=== PATIENT | male | born 1935 | race Caucasian/White ===

== ENCOUNTER 2016-10-31 09:11 | Day surgery (SDC) | payer MEDICARE, OTHER ==
[2016-10-31] VITALS (13 sets, daily range): BP systolic 125–145; BP diastolic 57–88; PULSE 38–69; RESP 13–22; O2SAT 92–98
[~2016-10-31] VITALS: Ht 177.8 cm; Wt 81.9 kg
[~2016-10-31 09:11] MED LIST: ASPI-973 PO; CeFAZolin Inj 2 GM in IV Premix 1 EACH IV ONE; LORA1TAB PO; MULT-1018 PO; RES15 PO; SILD100T PO; TAMS0.4C98 PO
[2016-10-31] MEDS ORDERED: EPHEDrine/NS 5 mg/mL 5 mL Syringe ONE (09:12)
[2016-10-31] MEDS ORDERED: Ondansetron 2 mg/mL 2 mL Inj ONE (09:12)
[2016-10-31] MEDS ORDERED: Lidocaine PF 1% 30 mL Inj ONE (09:12)
[2016-10-31] MEDS ORDERED: Propofol 10,000 mCg/mL 20 mL Inj ONE (09:12)
[2016-10-31] MEDS ORDERED: fentaNYL-PF 50 mCg/mL 2 mL Inj ONE (09:12)
[2016-10-31] MEDS: Lactated Ringer's 1,000 ML IV SCH ×2 (09:45→11:51)
[2016-10-31] MEDS ORDERED: Lactated Ringer's 1,000 ML IV SCH (11:39)
[2016-10-31] MEDS ORDERED: Lactated Ringer's 500 ML IV PRN (11:39)
--- NOTE | 2016-10-31 11:39 | PCM.HPANE ---
Patient Data Date of Service: Oct 31, 2016 Surgeon Admitting Provider: Attending Provider:Talisha Rocha MD Primary Care Physician:Sergey Abbott DO Other Provider:Anneliese Ibrahim Anesthesia Reason for Visit Microscopic Hematuria Ht/WT & BMI Height (Feet): 5 Height (Inches): 10 Weight (Kilograms): 81.9 Body Mass Index 25.00 Allergies Coded Allergies: Penicillins (Verified Allergy, Unknown, rash, 10/29/16) Past Anesthesia History Anesthesia History: Denies:: Abnormal Airway, Anesthesia Reactions, Difficult Intubation, Fam Anesthesia Reaction Diabetes History Hx Diabetes?: No MRSA MRSA: No Medications Blood Thinner: Aspirin Hypertension Medication: No Home Meds Incl Beta [place]: No Reported Medications Sildenafil Citrate (Viagra)100 Mg [id number] Mg PO UD PRN erectile dysfunction Ref 0 10/29/16 Temazepam 15 Mg [id number] Mg PO HS PRN For Insomnia 30 Days Ref 0 10/29/16 Tamsulosin (Flomax)0.4 Mg Capsule0.4 Mg PO DAILY Ref 0 10/29/16 Multivitamin (Multi Vitamin Daily)1 Each Tablet1 Each PO DAILY 30 Days Ref 0 10/29/16 Lorazepam 1 Mg Tablet1 Mg PO TID PRN For Anxiety Ref 0 10/29/16 Aspirin 81 Mg [id number] Mg PO DAILY Ref 0 10/29/16 History HEENT History: Positive for:: Cataracts (bilateral surgery) Hearing Problem Denies:: Abnormal Airway Difficult Intubation Dysphagia Sinus Problem TMJ Other HEENT Pertinent History: wears 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 Hx of Heart Problems?: No Cardiovascular History: Denies:: AICD Abdominal Aortic Aneurism Atrial Fibrillation Chest Pain Edema Heart Murmur Hypertension Irregular Heartbeat Pacemaker Peripheral Vascular Hx of Respiratory Problem?: No Respiratory History: Denies:: Asthma COPD Emphysema Oxygen Administration Pneumonia Tuberculosis Use of C-PAP Machine Use of Inhalers / NEBS Hx Neurologic Problems?: Yes Neurological History: Denies:: CVA Multiple Sclerosis Parkinson's Disease Seizures TIA Other Neurological Pertinent: spinal cerebellar ataxia-uses walker, or cane for ambulation Hx of GI Problems?: No Gastrointestinal History: Denies:: Cirrhosis Gall Bladder Disease Gastroesphageal Reflux Gastrointestinal Bleeding Heartburn Hepatitis Hiatal Hernia Liver Disease Rectal Bleeding Hx of Problems?: Yes Genitourinary History: Denies:: Kidney Stones Urinary Tract Infection Other Pertinent History: hematuria current admission problem Male Hx: Denies:: Prostate Problems Skin History: Denies:: History Skin Disorders? Pressure Ulcers Hx Musculoskeletal Problems?: No Musculoskeletal History: Positive for:: Joint Replacement (right hip ) Denies:: Back Injury Fibromyalgia Musculoskeletal Trauma Myasthenia Gravis Osteoarthritis Hx of Psycho/Social Problems?: No Psycho Social History: Denies:: Anxiety Hx Depression Hx Surgeries?: Yes (right hip, hernia repair) Hx Any Other Health Problems?: Yes Other History: Positive for:: Cancer (skin cancer "pre melanoma" upper back) Denies:: Thyroid Disease History Blood Transfusions: Positive for:: Accept Blood Products? Denies:: Blood Transfusions Hx Diabetes: No Hx Alcohol Use: NoHx Substance Use: NoHave You Smoked inLast 12 mo: No Stop/Bang Treated for Sleep Apnea?: No Do You Have a CPAP Machine?: No S-Snoring: Do You Snore Loudly: No T-Tired: feel tired, fatigued: No O-Obsered: Observed not breath: Yes P-Blood Pressure: treated: No B- Body Mass Index > 35 kg/m2: No A- Age over 50: Yes N- Neck Large Circumference: No G- Gender Male: Yes JANIE Total Score: 3 JANIE Risk Assessment: High Risk, =/>3 Yes JANIE Category 4 OutPt Procedure: Yes Risk Assessment Category Category 1A: Patient has history of documented sleep apnea, and HAS NOT received any narcotic, sedative or anesthesia administration during this stay. Category 1B: Patient has history of documented sleep apnea, and HAS received any narcotic , sedative or anesthesia administration during this stay Category 2: Patient has SUSPECTED Obstructive Sleep Apnea, and HAS received any narcotic , sedative or anesthesia administration during this stay. Category 3: Patient has SUSPECTED Obstructive Sleep Apnea and HAS NOT received narcotic, sedative or anesthesia administration during this stay. Category 4: Outpatient in Procedural Areas with known sleep apnea or who screen positive for High Risk via the STOP/BANG questionnaire. Exam Exam Vital Signs Vital Signs Date Time Temp Pulse Resp B/P Pulse Ox O2 Delivery O2 Flow Rate FiO2 10/31/16 09:45 36.5 69 16 137/81 94 Room Air General Appearance: Alert, Oriented X3, Cooperative HEENT/AIRWAY: MP 2, Neck Movement (Full), Mouth Opening (Wide) Lungs: Clear to Auscultation, Normal Air Movement Heart: Regular Rate/Rhythm, Normal S1, Normal S2 Meds/Labs/Diagnostics Admission Meds Current Medications Lactated Ringer's (Lr) 1,000 ml @ 120 mls/hr [id number] IV Last administered on t 09:45; Start 10/31/16 at 05:00; Stop 10/31/16 at 13:19 Plan Impression Patient chart reviewed, patient interviewed and anesthestic plan with risks, benefits, and alternatives discussed, and informed consent obtained. NPO Status: 10/30 ASA Physical Status: ASA2 Mod Systemic Disease Anesthetic Plan: GA Bene/Risks/Altern/Consents: Yes HP Complete Prior to Induction: Yes Ian Harden MD Oct 31, 2016 10:08
[2016-10-31] MEDS ORDERED: Labetalol 5 mg/mL 4 mL Inj IV PRN (11:40)
[2016-10-31] MEDS ORDERED: fentaNYL-PF 50 mCg/mL 2 mL Inj IVPUSH PRN (11:40)
[2016-10-31] MEDS ORDERED: Phenylephrine 10,000 mCg/mL Inj IVPUSH PRN (11:40)
[2016-10-31] MEDS ORDERED: Atropine 0.4 mg/mL Inj IVPUSH PRN (11:40)
[2016-10-31] MEDS ORDERED: HYDROmorphone 1 mg/mL Inj IVPUSH PRN (11:40)
[2016-10-31] MEDS ORDERED: MetoCLOpramide 5 mg/mL 2 mL Inj IVPUSH PRN (11:40)
[2016-10-31] MEDS ORDERED: Dexamethasone 4 mg/mL Inj IVPUSH PRN (11:40)
[2016-10-31] MEDS ORDERED: Ondansetron 2 mg/mL 2 mL Inj IVPUSH PRN (11:40)
[2016-10-31] MEDS ORDERED: hydrALAZINE 20 mg/mL Inj IVPUSH PRN (11:40)
[2016-10-31] MEDS ORDERED: EPHEDrine Sulfate 50 mg/mL Inj IVPUSH PRN (11:40)
[2016-10-31] MEDS ORDERED: Belladonna Alk-Opium 60 mg Rectal Suppository RECTAL ONE (13:06)
[2016-10-31] MEDS ORDERED: HYDROcodone-APAP 5-325 mg Tablet PO PRN (13:25)
[2016-10-31] MEDS ORDERED: Ondansetron 8 mg ODT Tablet PO PRN (13:25)
--- NOTE | 2016-10-31 13:31 | PCM.ANEP1 ---
Post Anesthesia Phase 1 PACU Phase 1 Assessment Date of Service: Oct 31, 2016 Vital Signs Vital Signs Date Time Temp Pulse Resp B/P Pulse Ox O2 Delivery O2 Flow Rate FiO2 10/31/16 09:45 36.5 69 16 137/81 94 Room Air Anesthetic Administered: GA Level of Alertness: Sleepy, easy to arouse HESS's with Equal Strength: Yes Pain: No Nausea or Vomiting: No Oxygen Delivery: Simple Mask Lungs: Normal Air Movement Ian Harden MD Oct 31, 2016 13:31
--- NOTE | 2016-10-31 13:48 | PCM.ANEP2 ---
Post Anesthesia Evaluation ASA/CMS Post Anesthesia Date of Service: Oct 31, 2016 VS in Patient's Normal Range?: Yes Resp Stable; Airway Patent?: Yes CV Function & Hydration Stable: Yes Mental Status Recovered?: Yes Pain control Satisfactory?: Yes N/V Control Satisfactory?: Yes Ian Harden MD Oct 31, 2016 13:48
[2016-10-31] MEDS ORDERED: Phenazopyridine 97.5 mg Tablet ONE (14:47)
[2016-10-31] MEDS ORDERED: Phenazopyridine 97.5 mg Tablet PO ONE (15:25)
--- NOTE | 2016-10-31 16:22 | DRSVH ---
PROCEDURE: X-RAY RETROGRADE UROGRAPHY INDICATIONS: LEFT CYSTO WITH STENT PLACEMENT TECHNIQUE: 2 intra-operative images acquired by the Urology service. COMPARISON: [facility], CT, IVP (ABD & PEL WWO CONTRAST), 09/30/2016, 10:01. FINDINGS: 2 submitted images demonstrates placement of left ureteral stent. IMPRESSION: Placement of left ureteral stent. Dictated by: Haider FRAZIER Interpreted: Cosme Douglas MD on 10/31/2016 at 16:20 Transcribed by: LAURI on 10/31/2016 at 16:21 Approved by: Cosme Douglas M.D. on 11/02/2016 at 16:02
--- NOTE | 2016-11-02 | OP ---
[address] [address] OPERATIVE REPORT PATIENT: ROBERT LOZADA : 1935 MR#: [id number] ADMIT: 10/31/2016 JOB ID: [id number] DATE OF SURGERY: 10/31/2016 SURGEON: Talisha Rocha MD. PROCEDURE NAME: 1 Left-sided ureteroscopy with 2 left-sided renal pelvis biopsy, left-sided renal pelvis washings, and 3 left-sided double-J stent. ANESTHESIA: General. PREOPERATIVE DIAGNOSIS(ES): 1. Gross hematuria. 2. Left-sided renal pelvis defect on imaging study suspicious for renal pelvic tumor. POSTOPERATIVE DIAGNOSIS(ES): 1. Gross hematuria. 2. Left-sided renal pelvis defect on imaging study suspicious for renal pelvic tumor. INDICATIONS: Patient is an 81-year-old gentleman with a workup for gross hematuria revealing age-appropriate urinary bladder; however, CT urogram revealing a filling defect highly suspicious for a soft tissue tumor in the left renal pelvis. He was set up for diagnostic ureteroscopy, biopsy if indicated, and ureteral washings to assess the nature of this filling defect. Risks and benefits of the procedure were discussed with the patient as this is potentially automobile rental representative of a renal pelvic malignancy. Diagnosis would be necessary prior to recommendation of appropriate therapy. PROCEDURE IN DETAIL: After appropriate informed consent was obtained, patient was brought to the operating room. SCDs were placed. Adequate general anesthesia was induced. He received IV antibiotics prior to onset of the procedure. He was carefully placed in the dorsal lithotomy position. All pressure points carefully padded. Cleaned, prepped, and draped in usual sterile fashion. Rigid scope was introduced in the patient's bladder. He was noted to have a friable large prostate consistent with age over 80 years old. Left ureteral orifice was visualized and noted to be in orthotopic position. It was also rather diminutive in size. We needed to dilate with a 14-Libyan diameter balloon to get into the ureteral orifice and then found ultimately that we needed to dilate partially the way up the ureter in order to get the flexible ureteroscope up. We used a 14-Libyan outer diameter access sheath that was short hoping to advance the scope itself over wire up into the renal pelvis; however, we actually did have to dilate two more small segments above the level of the access sheath to get the scope up. Once we had done this, we obtained some ureteral washings, renal pelvic washings, cell sent for cytology. Inspection of the renal pelvis did reveal a visible soft tissue mass, some of which was reddish in appearance. Did not exactly appear as clot and was felt to be tumor. There were also some low papillary changes, which were seen quite obviously to be papillary changes in several locations in the renal pelvis in the expected location. We used a small cup biopsy forceps to get some tissue from the larger reddish mass which may or may have been clot versus tumor. Attempts to grasp areas of renal pelvis papillary changes were possibly unsuccessful. It was difficult to see the tissue and with the patient's breathing making biopsy difficult. We took a few more washings from this area and then withdrew the scope. There had been a safety wire left in place throughout the course of the entire ureteroscopy and we then used a safety wire to backload a 6-Libyan x 24 cm double-J stent with the string intact up into good position with a curl in the renal pelvis and a curl in the patient's bladder. This was done secondary to the need for dilation and the expectation of some potential bleeding after biopsies. There was actually minimal bleeding. The stent itself was in good position with a curl in the renal pelvis as seen on the fluoroscopy and curl in the renal pelvis seen visually. Patient's bladder and some clot was irrigated out with the cystoscope and string was left long outside of the patient's body in anticipation of removal of the stent in one week. He was given a B and O for postop comfort, awakened, and taken in stable condition to the postanesthesia care unit. ABILIO
--- NOTE | 2016-11-07 10:08 | PATH ---
SURGICAL PATHOLOGY Attending Physician:Talisha Rocha MD CASE STATUS: Signed Out PATIENT NAME: ROBERT LOZADA PID: [id number] : 1935 DATE COLLECTED:10/31/2016 00:00 SPECIMEN: 1: Left Renal Pelvis Washing 2: Left Renal Pelvis Washing CLINICAL HISTORY: A) Left Renal Pelvis Washing B) Left Renal Pelvis Washing ICD-10 code not given FINAL DIAGNOSIS: See diagnosis. NOTE: LEFT RENAL PELVIS WASHING CYTOLOGY SPECIMEN (PARTS A AND B), INCLUDES CELL BLOCK AND THINPREP, EACH SPECIMEN: NEGATIVE FOR MALIGNANCY. CELLS PRESENT INCLUDE BENIGN-APPEARING UROTHELIAL CELLS WELL INFLAMMATORY CELLS. ICD10 CODE N28.9 GROSS DESCRIPTION: A)Received fresh on 11/03/2016 is approximately 20 cc of cloudy pink fluid. Prepared are one cell block and one ThinPrep slide. B)Received fresh on 11/03/2016 is approximately 20 cc of clear pink fluid. Prepared are one cell block and one ThinPrep slide. Vo ICD-9 CODES: CPT CODES: 1: 15195, 84076 2: 30514, 97963 Electronically Signed Out Farhat Bell MD [facility] [address], [place] [address] Technical component performed at [facility], [facility] [address], [place], [address]
[2017-01-01] MEDS ORDERED: HYDR-4003 PO (14:16)
== END 2016-10-31 23:59 | disposition home or self-care (01) ==
LOC: SAS 09:11
PROVIDERS: ATTEND Urology
DX: R31.29 Other microscopic hematuria (principal); N28.89 Other specified disorders of kidney and ureter; R35.1 Nocturia; N40.1 Benign prostatic hyperplasia with lower urinary tract symptoms; G11.9 Hereditary ataxia, unspecified; E55.9 Vitamin D deficiency, unspecified; Z79.82 Long term (current) use of aspirin
CPT/HCPCS: 52332; 52354; 74420; C2617; J0690; J2405; J3010; J7120; Q9967

== ENCOUNTER 2016-12-08 06:23 | Day surgery (SDC) | payer MEDICARE, OTHER ==
[2016-12-08] VITALS (7 sets, daily range): BP systolic 135–157; BP diastolic 77–88; PULSE 57–76; RESP 10–20; O2SAT 95–98
[~2016-12-08] VITALS: Ht 170.2 cm; Wt 79.3 kg
[~2016-12-08 06:23] MED LIST changes: -CeFAZolin Inj 2 GM in IV Premix 1 EACH IV ONE; +Lactated Ringer's 1,000 ML IV ONE; +Levofloxacin 500 mg/100 mL D5W IV ONE
[2016-12-08] MEDS ORDERED: Propofol 10,000 mCg/mL 20 mL Inj ONE (06:24)
[2016-12-08] MEDS ORDERED: Ondansetron 2 mg/mL 2 mL Inj ONE (06:24)
[2016-12-08] MEDS ORDERED: fentaNYL-PF 50 mCg/mL 2 mL Inj ONE (06:24)
--- NOTE | 2016-12-08 06:47 | PCM.HPANE ---
Patient Data Surgeon Admitting Provider: Attending Provider:Fatemeh Horton MD Primary Care Physician:Sergey Abbott DO Other Provider:Jolynn Ibrahimingham Anesthesia Reason for Visit Abnormal Ct Scan Ht/WT & BMI Height (Feet): 5 Height (Inches): 7 Weight (Kilograms): 79.29 Body Mass Index 27.00 Allergies Coded Allergies: Penicillins (Verified Allergy, Unknown, rash, 10/29/16) Past Anesthesia History Anesthesia History: Denies:: Abnormal Airway, Anesthesia Reactions, Difficult Intubation, Fam Anesthesia Reaction Diabetes History Hx Diabetes?: No MRSA MRSA: No Medications Blood Thinner: Aspirin Hypertension Medication: No Home Meds Incl Beta [place]: No Reported Medications Sildenafil Citrate (Viagra)100 Mg [id number] Mg PO UD PRN erectile dysfunction Ref 0 10/29/16 Temazepam 15 Mg Ohsoubz17 Mg PO HS PRN For Insomnia 30 Days Ref 0 10/29/16 Tamsulosin (Flomax)0.4 Mg Capsule0.4 Mg PO DAILY Ref 0 10/29/16 Multivitamin (Multi Vitamin Daily)1 Each Tablet1 Each PO DAILY 30 Days Ref 0 10/29/16 Lorazepam 1 Mg Tablet1 Mg PO TID PRN For Anxiety Ref 0 10/29/16 Aspirin 81 Mg Yuzysc83 Mg PO DAILY Ref 0 10/29/16 History HEENT History: Positive for:: Cataracts (bilateral surgery) Hearing Problem Denies:: Abnormal Airway Difficult Intubation Dysphagia Sinus Problem TMJ Other HEENT Pertinent History: wears 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 Hx of Heart Problems?: No Cardiovascular History: Denies:: AICD Abdominal Aortic Aneurism Atrial Fibrillation Cardiac Surgery Chest Pain Edema Heart Murmur Hypertension Irregular Heartbeat Pacemaker Peripheral Vascular Hx of Respiratory Problem?: No Respiratory History: Denies:: Asthma COPD Emphysema Oxygen Administration Pneumonia Tuberculosis Use of C-PAP Machine Use of Inhalers / NEBS Hx Neurologic Problems?: Yes Neurological History: Denies:: CVA Multiple Sclerosis Parkinson's Disease Seizures Other Neurological Pertinent: 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 Pressure Ulcers Hx Musculoskeletal Problems?: Yes Musculoskeletal History: Positive for:: Joint Replacement (right hip) Osteoarthritis Denies:: Back Injury Fibromyalgia Musculoskeletal Trauma Hx of Psycho/Social Problems?: No Psycho Social History: Denies:: Anxiety Hx Depression Hx Surgeries?: Yes (right total hip, hernia, cysto) Hx Any Other Health Problems?: Yes Other History: Denies:: Cancer Thyroid Disease History Blood Transfusions: Denies:: Blood Transfusions Hx Diabetes: No Hx Alcohol Use: NoHx Substance Use: NoHave You Smoked inLast 12 mo: No Stop/Bang S-Snoring: Do You Snore Loudly: No T-Tired: feel tired, fatigued: No O-Obsered: Observed not breath: Yes P-Blood Pressure: treated: No B- Body Mass Index > 35 kg/m2: No A- Age over 50: Yes N- Neck Large Circumference: No G- Gender Male: Yes JANIE Total Score: 3 Risk Assessment Category Category 1A: Patient has history of documented sleep apnea, and HAS NOT received any narcotic, sedative or anesthesia administration during this stay. Category 1B: Patient has history of documented sleep apnea, and HAS received any narcotic , sedative or anesthesia administration during this stay Category 2: Patient has SUSPECTED Obstructive Sleep Apnea, and HAS received any narcotic , sedative or anesthesia administration during this stay. Category 3: Patient has SUSPECTED Obstructive Sleep Apnea and HAS NOT received narcotic, sedative or anesthesia administration during this stay. Category 4: Outpatient in Procedural Areas with known sleep apnea or who screen positive for High Risk via the STOP/BANG questionnaire. Exam Exam General Appearance: Alert, Oriented X3, Cooperative HEENT/AIRWAY: MP 2, Neck Movement (FROM), Mouth Opening (Moderate) Lungs: Clear to Auscultation Heart: Exam Unremarkable Plan Impression Patient chart reviewed, patient interviewed and anesthestic plan with risks, benefits, and alternatives discussed, and informed consent obtained. NPO Status: 2/9 ASA Physical Status: ASA2 Mod Systemic Disease Anesthetic Plan: GA Bene/Risks/Altern/Consents: Yes HP Complete Prior to Induction: Yes Gsaton Green MD Dec 08, 2016 06:47
[2016-12-08] MEDS ORDERED: Lactated Ringer's 1,000 ML IV ONE (07:09)
[2016-12-08] MEDS ORDERED: Lactated Ringer's 500 ML IV PRN (08:24)
[2016-12-08] MEDS ORDERED: Lactated Ringer's 1,000 ML IV SCH (08:24)
[2016-12-08] MEDS ORDERED: Labetalol 5 mg/mL 4 mL Inj IV PRN (08:25)
[2016-12-08] MEDS ORDERED: Atropine 0.4 mg/mL Inj IVPUSH PRN (08:25)
[2016-12-08] MEDS ORDERED: fentaNYL-PF 50 mCg/mL 2 mL Inj IVPUSH PRN (08:25)
[2016-12-08] MEDS ORDERED: Ondansetron 2 mg/mL 2 mL Inj IVPUSH PRN (08:25)
[2016-12-08] MEDS ORDERED: hydrALAZINE 20 mg/mL Inj IVPUSH PRN (08:25)
[2016-12-08] MEDS ORDERED: Phenylephrine 10,000 mCg/mL Inj IVPUSH PRN (08:25)
[2016-12-08] MEDS ORDERED: Dexamethasone 4 mg/mL Inj IVPUSH PRN (08:25)
[2016-12-08] MEDS ORDERED: HYDROmorphone 1 mg/mL Inj IVPUSH PRN (08:25)
[2016-12-08] MEDS ORDERED: EPHEDrine Sulfate 50 mg/mL Inj IVPUSH PRN (08:25)
[2016-12-08] MEDS ORDERED: Iopamidol-300 50 mL Inj IV ONE (08:59)
[2016-12-08] MEDS ORDERED: HYDROcodone-APAP 5-325 mg Tablet PO PRN (10:35)
--- NOTE | 2016-12-08 10:39 | PCM.ANEP1 ---
Post Anesthesia Phase 1 PACU Phase 1 Assessment Vital Signs Vital Signs Date Time Temp Pulse Resp B/P Pulse Ox O2 Delivery O2 Flow Rate FiO2 12/08/16 10:30 65 11 135/82 98 Simple Mask 10 12/08/16 10:22 36.7 65 10 141/80 97 Simple Mask 10 12/08/16 07:10 36.4 76 20 157/81 97 Room Air Anesthetic Administered: GA Level of Alertness: Sleeping, hard to arouse HESS's with Equal Strength: Yes Pain: No Nausea or Vomiting: No Airway Device: Oralpharangeal Airway Oxygen Delivery: Simple Mask Lungs: Normal Air Movement Gaston Green MD Dec 08, 2016 10:39
--- NOTE | 2016-12-08 12:40 | PCM.ANEP2 ---
Post Anesthesia Evaluation ASA/CMS Post Anesthesia VS in Patient's Normal Range?: Yes Resp Stable; Airway Patent?: Yes CV Function & Hydration Stable: Yes Mental Status Recovered?: Yes Pain control Satisfactory?: Yes N/V Control Satisfactory?: Yes Gaston Green MD Dec 08, 2016 12:40
--- NOTE | 2016-12-08 22:02 | OP ---
[address] [address] OPERATIVE REPORT PATIENT: ROBERT LOZADA : 1935 MR#: [id number] ADMIT: 12/08/2016 JOB ID: [id number] DATE OF SURGERY: 12/08/2016 PREOPERATIVE DIAGNOSIS(ES): Left lower pole filling defect. POSTOPERATIVE DIAGNOSIS(ES): Left lower pole collecting system tumors. PROCEDURE: 1. Cystoscopy with left retrograde pyelogram. 2. Left ureteroscopy. 3. Left laser of tumor. 4. Left tumor basketing. 5. Left ureteral stent placement. SURGEON: Fatemeh Horton MD. CASTING HOUSE WORKER: None. FINDINGS: 1. J hooked left distal ureter. 2. 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 Within the an inferior pole calyx, there was papillary tumor present diffusely within the calyx and at the lowest pole calyx there was a nodular friable tumor with calcifications encrusting the surface of this tumor. ANESTHESIA: General. ESTIMATED BLOOD LOSS: Less than 5 mL. DRAINS: A 6 x 26 left double-J ureteral stent. SPECIMENS: Left lower pole collecting system tumors. COMPLICATIONS: None. CONDITION: Stable. INDICATIONS FOR PROCEDURE: The patient is an 81-year-old gentleman with left lower pole tumors. He had previously undergone attempted biopsy of these lesions with Dr. Rocha. The specimens were inadequate for pathologic diagnosis. He now returns to obtain further specimens for further evaluation. DESCRIPTION OF PROCEDURE: After informed consent was obtained, the patient was taken to the operating room. A time-out was performed identifying correct patient, surgical site, and procedure. General anesthesia was smoothly induced. He was given intravenous antibiotics just prior to the start of the procedure. He was placed in the lithotomy position and all pressure points were identified and appropriately padded. His genitals were then prepped and draped in usual sterile fashion. A 22-Iraqi rigid cystoscope was applied to the patient's urethra and advanced into the bladder. Bladder was drained. The bladder appeared moderately trabeculated. The left ureteral orifice was identified in orthotopic position. It was cannulated with a 5-Iraqi open-ended Pollack catheter. Retrograde pyelogram was performed. There was J hooking just proximal to the ureterovesical junction. The retrograde pyelogram appeared otherwise normal. It was attempted to place a Sensor tip and then a glide wire through the Pollack and then without the Pollack up the ureter though this J hooking prevented the wire from migrating any further than just the distal ureter. A semi-rigid ureteroscope was then used to circumvent the J hooking and two Sensor tip wires were then advanced into the renal pelvis as seen under fluoroscopy. A 12/14 access sheath, 28 cm long was used over one of the existing Sensor tip wires and advanced to the mid ureter. Flexible ureteroscopy then commenced. The ureter on survey with the ureteroscope was normal-appearing, perhaps somewhat very mildly dilated. Every calyx was examined. Retrograde pyelogram was repeatedly performed. In the lower pole calyx, the one more lateral in the lower pole, there was papillary tumor there, and the lowest pole calyx and more medial there was a nodular tumor surrounded by papillary tumors. This nodular tumor was encrusted with calcifications. It was attempted to use ureteroscopic biopsy forceps, both cold cup and an alligator, to collect samples though several and innumerable attempts yielded only the tiniest of fragments and it was uncertain if this would be adequate for pathologic diagnosis. Ultimately, a 273 micron laser FiberWire was used to break up some of the papillary tumors as well as the nodular tumors to create free-floating specimen. A ZeroTip basket was then used to basket some of these pieces of tissue and in review of these on the back table, these appeared to be more than adequate sampling for pathologic review. Next, the ureteroscope was then brought down to the level of the access sheath. Both were brought down in tandem. The ureter was entirely otherwise normal. The remaining Sensor tip wire was then backloaded into the cystoscope and a 6 x 26 double-J ureteral stent was loaded over the wire and advanced to the renal pelvis as seen under fluoroscopy. The wire then removed, leaving a nice coil in the patient's bladder seen under direct vision. The patient's bladder was then drained. The patient was then reversed from general anesthesia and taken to PACU in good and stable condition. ABILIO
--- NOTE | 2016-12-15 14:41 | PATH ---
SURGICAL PATHOLOGY Attending Physician:Fatemeh Horton, CASE STATUS: Signed Out PATIENT NAME: ROBERT LOZADA PID: [id number] : 1935 DATE COLLECTED:12/08/2016 20:47 SPECIMEN: Kidney, Non-transplant biopsy CLINICAL HISTORY: ABNORMAL CT SCAN 1). LEFT LOWER POLL COLLECTING SYSTEM LESION FINAL DIAGNOSIS: 1.LEFT LOWER POLL COLLECTING SYSTEM LESION, BIOPSY: HIGH-GRADE UROTHELIAL CARCINOMA. TUMOR DOES NOT APPEAR TO INFILTRATE THE SUBMUCOSA (PLEASE SEE COMMENT). ICD10 code C65.1 NOTE: The specimen consists of tumor and separate fragments of uninvolved submucosal fibrous tissue. No areas of invasion are identified. GROSS DESCRIPTION: The specimen is received in one formalin filled container labeled with the patient's name, sublabeled " LEFT LOWER POLL COLLECTING SYSTEM LESION" and consists of are two 0.3-0.4 CM light childress solis portions of tissue and small amount of friable material. Totally submitted in one cassette. 12/08/2016 [facility] MICRO DESCRIPTION: Sections reveal solid nests of malignant epithelial cells arrayed in a haphazard pattern. Present are fragments of fibrous submucosa that are uninvolved by tumor. Sections, along with appropriate controls, are incubated with the following antibodies: Pankeratin (FIONA):Positive CK7:PositiveGATA-3:Scattered moderate positivity Uroplakin:Negative PAX-8:Negative The findings are consistent with a urothelial carcinoma. This test was developed and its performance characteristics determined by [facility]. It has not been cleared or approved by the U. S. Food and Drug Administration. The FDA has determined that such clearance or approval is not necessary. This test is used for clinical purposes. It should not be regarded as investigational or for research. ICD-9 CODES: CPT CODES: 1: 66468, 09016, 39961, 16571, 05302 Electronically Signed Out Haris George MD [facility] Pathology [facility] [address], [place] [address] Technical component performed at [facility], [address], [place], [address]
[2017-01-01] MEDS ORDERED: HYDR-4003 PO (14:16)
== END 2016-12-08 23:59 | disposition home or self-care (01) ==
LOC: SAS 06:23
PROVIDERS: ATTEND Urology
DX: C65.1 Malignant neoplasm of right renal pelvis (principal); G11.9 Hereditary ataxia, unspecified; M19.90 Unspecified osteoarthritis, unspecified site; N40.1 Benign prostatic hyperplasia with lower urinary tract symptoms; R35.1 Nocturia; Z79.82 Long term (current) use of aspirin; Z96.641 Presence of right artificial hip joint
CPT/HCPCS: 52355; 74420; C2617; J2405; J3010; J7120; Q9967

== ENCOUNTER 2017-01-05 05:46 | Inpatient (IN) | payer MEDICARE, OTHER ==
[~2017-01-05] VITALS: Ht 175.3 cm; Wt 75.0 kg
[2017-01-05] VITALS (8 sets, daily range): BP systolic 140–151; BP diastolic 75–97; PULSE 51–94; RESP 15–20; O2SAT 94–96
[~2017-01-05 05:46] MED LIST changes: +HYDR-4003 PO; -Levofloxacin 500 mg/100 mL D5W IV ONE
[2017-01-05] MEDS ORDERED: CeFAZolin Inj 2 GM in IV Premix 1 EACH IV ONE (06:00)
[2017-01-05] MEDS: Levofloxacin 500 mg/100 mL D5W IV SCH ×4 (06:00→14:35)
[2017-01-05] MEDS ORDERED: SLEEP AID PO (06:01)
[2017-01-05] MEDS ORDERED: Lactated Ringer's 1,000 ML IV ONE ×4 (09:06→16:32)
[2017-01-05] MEDS ORDERED: Lactated Ringer's 500 ML IV PRN (09:36)
[2017-01-05] MEDS ORDERED: Lactated Ringer's 1,000 ML IV SCH (09:36)
--- NOTE | 2017-01-05 09:36 | PCM.HPANE ---
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 Ht/WT & BMI Height (Feet): 5 Height (Inches): 9 Weight (Kilograms): 73.3 Body Mass Index 23.00 Allergies Coded Allergies: Penicillins (Verified Allergy, Unknown, rash, 10/29/16) Past Anesthesia History Anesthesia History: Denies:: Abnormal Airway, Anesthesia Reactions, Difficult Intubation, Fam Anesthesia Reaction Diabetes History Hx Diabetes?: No MRSA MRSA: No Medications Blood Thinner: Aspirin Hypertension Medication: No Home Meds Incl Beta Cary: No Reported Medications [Sleep Aid] No Conflict Check1 Tablet PO PRN 01/05/17 Hydrocodone-Acetaminophen 5-325 mg 1 Each Tablet1 Tablet PO Q4H PRN For Pain Ref 0 01/01/17 Sildenafil Citrate (Viagra)100 Mg [id number] Mg PO UD PRN erectile dysfunction Ref 0 10/29/16 Temazepam 15 Mg Laufptx26 Mg PO HS PRN For Insomnia 30 Days Ref 0 10/29/16 Tamsulosin (Flomax)0.4 Mg Capsule0.4 Mg PO DAILY Ref 0 10/29/16 Multivitamin (Multi Vitamin Daily)1 Each Tablet1 Each PO DAILY 30 Days Ref 0 10/29/16 Lorazepam 1 Mg Tablet1 Mg PO TID PRN For Anxiety Ref 0 10/29/16 Aspirin 81 Mg Mtbvem50 Mg PO DAILY Ref 0 10/29/16 History History of ENT Problems?: Yes HEENT History: Positive for:: Cataracts (bilateral surgery) Hearing Problem Denies:: Abnormal Airway Difficult Intubation Dysphagia Sinus Problem TMJ Other HEENT Pertinent History: wears 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 Hx of Heart Problems?: No Cardiovascular History: Denies:: AICD Abdominal Aortic Aneurism Atrial Fibrillation Cardiac Surgery Chest Pain Edema Heart Murmur Hypertension Irregular Heartbeat Pacemaker Hx of Respiratory Problem?: No Respiratory History: Denies:: Asthma COPD Emphysema Oxygen Administration Pneumonia Tuberculosis Use of C-PAP Machine Hx Neurologic Problems?: Yes Neurological History: Denies:: CVA Multiple Sclerosis Parkinson's Disease Seizures Other Neurological Pertinent: 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 Other History/Comments cervical spinal stenosis without radiculopathy or upper extremity weakness Hx of GI Problems?: No Gastrointestinal History: Denies:: Cirrhosis Gastroesphageal Reflux Gastrointestinal Bleeding Heartburn Hepatitis Hiatal Hernia Rectal Bleeding Other GI Pertinent History: prior hx left inguinal hernia Hx of Problems?: Yes Genitourinary History: Denies:: Kidney Stones Urinary Tract Infection Other Pertinent History: urothelial ca left kidney current admission problem Male Hx: Positive for:: Testicular Surgery (vasectomy) Denies:: Prostate Problems Skin History: Denies:: History Skin Disorders? Pressure Ulcers Hx Musculoskeletal Problems?: Yes Musculoskeletal History: Positive for:: Joint Replacement (right hip) Osteoarthritis Denies:: Back Injury Musculoskeletal Trauma Hx of Psycho/Social Problems?: No Psycho Social History: Denies:: Anxiety Hx Depression Hx Surgeries?: Yes (right total hip, hernia, cysto) Hx Any Other Health Problems?: Yes Other History: Positive for:: Cancer (left urothelial) Denies:: Thyroid Disease History Blood Transfusions: Positive for:: Accept Blood Products? Denies:: Blood Transfusions Hx Diabetes: No Hx Alcohol Use: NoHx Substance Use: No Smoking Status: Never Smoker Have You Smoked inLast 12 mo: No Stop/Bang Treated for Sleep Apnea?: No Do You Have a CPAP Machine?: No S-Snoring: Do You Snore Loudly: No T-Tired: feel tired, fatigued: No O-Obsered: Observed not breath: Yes P-Blood Pressure: treated: No B- Body Mass Index > 35 kg/m2: No A- Age over 50: Yes N- Neck Large Circumference: No G- Gender Male: Yes JANIE Total Score: 3 JANIE Risk Assessment: Low Risk, <3 Yes Risk Assessment Category Category 1A: Patient has history of documented sleep apnea, and HAS NOT received any narcotic, sedative or anesthesia administration during this stay. Category 1B: Patient has history of documented sleep apnea, and HAS received any narcotic , sedative or anesthesia administration during this stay Category 2: Patient has SUSPECTED Obstructive Sleep Apnea, and HAS received any narcotic , sedative or anesthesia administration during this stay. Category 3: Patient has SUSPECTED Obstructive Sleep Apnea and HAS NOT received narcotic, sedative or anesthesia administration during this stay. Category 4: Outpatient in Procedural Areas with known sleep apnea or who screen positive for High Risk via the STOP/BANG questionnaire. Exam Exam Vital Signs Vital Signs Date Time Temp Pulse Resp B/P Pulse Ox O2 Delivery O2 Flow Rate FiO2 01/05/17 06:15 36.5 72 16 145/82 95 Room Air General Appearance: Alert, Oriented X3 HEENT/AIRWAY: MP 1 Lungs: Clear to Auscultation Heart: Exam Unremarkable Meds/Labs/Diagnostics Admission Meds Current Medications Levofloxacin/ Dextrose 500 mg/ Premix 100 ml @ 100 mls/hr PREOP IV Last administered on 01/05/17 07:56; Start 01/05/17 at 06:00; Stop 01/05/17 at 19:00 Lactated Ringer's 1,000 ml @ 120 mls/hr Q8H20M ONCE IV Last administered on 05:50; Start 01/05/17 at 05:00; Stop 01/05/17 at 13:19 Lactated Ringer's (Lr) 1,000 ml @ ud STK-MED ONCE IV Last administered on 01/05 09:06; Start 01/05/17 at 09:06; Stop 01/05/17 at 09:15; Status DC Plan Impression Patient chart reviewed, patient interviewed and anesthestic plan with risks, benefits, and alternatives discussed, and informed consent obtained. NPO Status: 1630 01/04/17 ASA Physical Status: ASA2 Mod Systemic Disease Anesthetic Plan: GA Bene/Risks/Altern/Consents: Yes HP Complete Prior to Induction: Yes Carlos Malave MD Jan 05, 2017 09:36
[2017-01-05] MEDS ORDERED: Dexamethasone 4 mg/mL Inj IVPUSH PRN (09:40)
[2017-01-05] MEDS ORDERED: MetoCLOpramide 5 mg/mL 2 mL Inj IVPUSH PRN (09:40)
[2017-01-05] MEDS ORDERED: Phenylephrine 10,000 mCg/mL Inj IVPUSH PRN (09:40)
[2017-01-05] MEDS ORDERED: Ondansetron 2 mg/mL 2 mL Inj IVPUSH PRN ×2 (09:40→15:20)
[2017-01-05] MEDS ORDERED: EPHEDrine Sulfate 50 mg/mL Inj IVPUSH PRN (09:40)
[2017-01-05] MEDS ORDERED: Gelatin Sponge SZ 50 TOPICAL ONE (12:34)
[2017-01-05] MEDS ORDERED: Bupivacaine-MPF 0.5% 30 mL Inj INFILTRATE ONE (14:54)
[2017-01-05] MEDS ORDERED: HYDROmorphone 1 mg/mL Inj IVPUSH PRN (15:20)
[2017-01-05] MEDS: fentaNYL-PF 50 mCg/mL 2 mL Inj IVPUSH PRN ×2 (16:06→16:27)
[2017-01-05] MEDS: HYDROmorphone 1 mg/mL Inj IVPUSH PRN ×2 (16:06→16:27)
[2017-01-05] MEDS ORDERED: Ondansetron 2 mg/mL 2 mL Inj ONE (16:35)
[2017-01-05] MEDS ORDERED: Dexamethasone 4 mg/mL Inj ONE (16:35)
[2017-01-05] MEDS ORDERED: Propofol 10,000 mCg/mL 20 mL Inj ONE (16:35)
[2017-01-05] MEDS ORDERED: Neostigmine 1 mg/mL 10 mL Inj ONE (16:35)
[2017-01-05] MEDS ORDERED: EPHEDrine/NS 5 mg/mL 5 mL Syringe ONE (16:35)
[2017-01-05] MEDS ORDERED: Succinylcholine Chloride 20 mg/mL 5 mL Inj ONE (16:35)
[2017-01-05] MEDS ORDERED: fentaNYL-PF 50 mCg/mL 2 mL Inj ONE (16:35)
[2017-01-05] MEDS ORDERED: Glycopyrrolate 0.2 MG/ML 1mL Inj ONE (16:35)
[2017-01-05] MEDS ORDERED: Ketamine 10 mg/mL 20 mL Inj ONE (16:35)
--- NOTE | 2017-01-05 16:59 | PCM.ANEP1 ---
Post Anesthesia Phase 1 PACU Phase 1 Assessment Date of Service: Jan 05, 2017 Vital Signs Vital Signs Date Time Temp Pulse Resp B/P Pulse Ox O2 Delivery O2 Flow Rate FiO2 01/05/17 16:47 36.4 94 17 147/89 94 Nasal Cannula 2.00 01/05/17 16:28 90 20 148/89 94 Nasal Cannula 2 01/05/17 16:23 88 20 145/97 94 Nasal Cannula 2 01/05/17 16:08 90 16 151/95 96 Simple Mask 8 01/05/17 15:59 87 19 143/83 96 Simple Mask 8 01/05/17 15:42 36.3 80 15 146/85 96 Simple Mask 8 Anesthetic Administered: GA Level of Alertness: Sleepy, easy to arouse Pain: No Nausea or Vomiting: No Oxygen Delivery: Simple Mask Lungs: Clear to Auscultation Carlos Malave MD Jan 05, 2017 16:59
--- NOTE | 2017-01-05 16:59 | PCM.ANEP2 ---
Post Anesthesia Evaluation ASA/CMS Post Anesthesia VS in Patient's Normal Range?: Yes Resp Stable; Airway Patent?: Yes CV Function & Hydration Stable: Yes Mental Status Recovered?: Yes Pain control Satisfactory?: Yes N/V Control Satisfactory?: Yes Carlos Malave MD Jan 05, 2017 16:59
[2017-01-05] MEDS: D5 0.45% NaCl + KCl 20 mEq/L 1,000 ML IV SCH (17:01)
--- NOTE | 2017-01-05 17:17 | NUR ---
Arrival to 1010 pt transferred from PACU after lapariscopic radical nephroureterectomy with Dr. Horton. Report taken from Jeb. Pt denies pain at this time. 3 lap sites on left abdomen are well approximated with duoderm; MARVIN drain has minimal s/s output; midline dressing has telfa and bio-occlussive which as minimal sanguinous output. Khoury is 2-way and patent and draining to gravity a fruit punch color with a few small clots seen. On 2L O2 via NC to keep sats in mid 90s. Pt is drowsy but easily aroused. Hearing aid in R ear replaced by his and L one removed at this time. is at bedside.
[2017-01-06] VITALS (8 sets, daily range): BP systolic 140–170; BP diastolic 75–86; PULSE 71–95; RESP 14–20; O2SAT 85–97
[2017-01-06] MEDS: D5 0.45% NaCl + KCl 20 mEq/L 1,000 ML IV SCH ×4 (01:18→23:16)
--- NOTE | 2017-01-06 01:23 | OP ---
[address] [address] OPERATIVE REPORT PATIENT: ROBERT LOZADA : 1935 MR#: [id number] ADMIT: 01/05/2017 JOB ID: [id number] DATE OF SURGERY: 01/05/2017 PREOPERATIVE DIAGNOSIS(ES): Left upper tract urothelial carcinoma. POSTOPERATIVE DIAGNOSIS(ES): Left upper tract urothelial carcinoma. PROCEDURE PERFORMED: 1. Cystoscopy and left ureteral stent placement. 2. Transurethral excision of the left ureteral orifice. 3. Left laparoscopic radical nephroureterectomy. 4. Open excision of left bladder cuff. Modifier 22 is being requested for dense rind encasing the renal pelvis and ureter requiring over 100% longer operative time for a typical nephroureterectomy. SURGEON: Fatemeh Horton MD. INTERFACE CONTROL OFFICER: 1. Ellen Orozco PA-C (her expert assistance navigating the laparoscopic camera was essential for the laparoscopic portion of procedure). 2. Ricardo Acosta MD (his expert assistance was required for assisting in the dissection of the open ureterectomy and abdominal wound closure). FINDINGS: 1. Fibrotic renal hilum. The renal pelvis was densely adherent to the renal vessels. 2. Fibrotic rind encasing the entire ureter, especially at the mid and distal aspects of the ureter. ANESTHESIA: General. ESTIMATED BLOOD LOSS: 400 mL. DRAINS: 1. A 20-Ugandan Khoury catheter to the bladder. 2. A 19 round MARVIN drain. 3. A 5-Ugandan open-ended Pollack catheter, which was used as a temporary left ureteral stent that was removed at the termination of the procedure. SPECIMENS: Left radical nephroureterectomy specimen. COMPLICATIONS: None. CONDITION: Stable. INDICATION FOR THE PROCEDURE: The patient is an 81-year-old gentleman with biopsy-proven high-grade urothelial carcinoma involving the lower pole calices of the left kidney. He now presents for left nephroureterectomy and excision of the ureteral orifice. DESCRIPTION OF PROCEDURE: After informed consent was obtained, the patient was taken to the operating room. A time-out was performed identifying correct patient, surgical site, and procedure. General anesthesia was smoothly induced. Intravenous antibiotics were given just prior to the start of the procedure. He was placed in the lithotomy position and all pressure points were identified and appropriately padded. His genitals were then prepped and draped in usual sterile fashion. A 22-Ugandan rigid cystoscope was applied the patient's urethra and advanced to the bladder. The bladder was drained. The bladder was quite trabeculated. The left ureteral orifice was seen in orthotopic position. The right ureteral orifice was also identified. A 5-Ugandan open-ended Pollack was then inserted into the left ureteral orifice and advanced until gentle resistance was met. The cystoscope was then removed, and it was replaced under direct vision with a 26-Ugandan resectoscope. The resectoscope was loaded with a Tran knife, and a 1 cm margin around the ureteral orifice was created by cauterizing a circumferential margin along the bladder mucosa. This was carried through to the perivesical fat. Once that was seen circumferentially along this excision site the resectoscope was removed. A 20-Ugandan Khoury catheter was inserted in the patient's bladder and insufflated with 10 cc of sterile water. The 5-Ugandan Pollack was then adhered to the catheter with a 2-0 silk tie. Next, the patient was then positioned in the right lateral decubitus position over a gel pad and peralta bag. All pressure points were again identified and appropriately padded. He was adhered to the table with wide adhesive cloth tape at his upper extremities, his hips, and lower extremities. In the midclavicular line two fingerbreadths inferior to the subcostal margin, an 11 blade was used to incise the skin, and a Veress needle was placed in the intraperitoneal cavity as verified by the saline drop test. The abdomen was insufflated. In the left lower quadrant approximately 2 inches inferior to the level of the umbilicus along the midclavicular line, a 10/12 trocar was then placed under direct vision after the skin was incised. Survey of the intraperitoneal contents revealed no inadvertent damage to any of the intraperitoneal contents. Next, a 10/12 port was placed approximately 2 inches superior to the umbilicus after the skin incision was made. A 10/12 port was then placed under direct vision. Along the site of the Veress needle this was enlarged to accommodate a 5 mm trocar. The white line of Toldt was seen. It was incised with Thunderbeat. The colon was reflected medially. The mesenteric fat was also seen and it was somewhat adherent to the kidney, but it was dissected away and reflected medially as well. The white line of Toldt was incised from lateral to the spleen as well as down into the pelvis. The ureter could not be found in orthotopic position. Ultimately, the dissection proceeded along the inferior pole of the kidney and hilum. There was seen a large renal artery coursing superior to the renal vein. Kittner and right angle dissector was used to dissect these vessels completely. The artery was ligated with an Endo-NATALIE stapler. Attention was then turned to the vein which was adherent to the renal pelvis. This was taken also with an Endo-NATALIE. Superiorly, there was three branches of the renal vein medially to the kidney. These were taken down with Hem-o-loks. This dissection was quite difficult at the superomedial aspect of the kidney as there were no normal tissue planes here. The dissection proceeded to the proximal ureter which was withdrawn medially and encased in fibrosis. Dissection here was quite difficult. The superior aspect of the kidney was dissected away from the spleen. The adrenal gland was seen, and it was quite adherent to the specimen. The endo NATALIE was used along the adrenal bed as there was no good tissue plane here for dissection. The dissection proceeded inferiorly down the ureter, which could only be dissected laparoscopically about to the mid ureter as it was densely adherent to the retroperitoneum and encased in severe fibrosis. At this point, attention was turned to the renal fossa, which was copiously irrigated as the kidney specimen had been moved down into the pelvis. The hilum and the adrenal bed were treated with FloSeal and Surgicel. Ziyad was used the close the 10/12 port sites, loaded with 0-Vicryl. The wounds were closed with 4-0 monocryl in subcuticular fashion. The wounds were dressed with skin glue. At the end of this portion of procedure there was excellent hemostasis. The patient was then repositioned in the supine position. All pressure points were again identified and appropriately padded. A midline infraumbilical incision was made and access was gained into the intraperitoneal cavity. The incision had to be elongated to the level of the umbilicus. The kidney specimen was manually palpated and brought down into the incision. The ureter could be plainly seen encased in a dense rind of fibrotic, hyperemic tissue. It was so densely adherent, only Bovie electrocautery in touch fashion could be used to take down these adhesions and. There was some bleeding here from the adventitial tissues. These were treated with clips. There was one small mesenteric vessel that was superficially bleeding and this was treated with a 2-0 in a qpbecb-aq-thdop fashion. Then, the ureter was dissected further distally. Again, there was extreme difficulty here given just how adherent and fibrotic the ureter was. Eventually, there was a tissue plane developed coming up toward the bladder. Finger dissection near the bladder wall created a nice hiatus and released the ureter. The Pollack catheter was removed from the catheter side; it was removed in its entirety. The specimen was reviewed on the table. The ureter and cuff had been excised intact and en bloc. This was passed off the table as left radical nephroureterectomy specimen. Attention was then turned to the psoas and some of the adventitial bleeding. Bovie electrocautery was used to treat it in spot fashion. FloSeal was placed over the area of the ureteral bed. Surgicel was placed over it as well. The colon was then replaced in orthotopic fashion. A 19 round MARVIN drain was brought out through the left lower quadrant. It was adhered to the skin with a 2-0 nylon. It was set to bulb suction. The fascia was then closed with a running looped 0 PDS. The Jamal's layer was then closed with Vicryl. The skin was then closed with Monocryl in running subcuticular fashion. The wounds were then dressed. The patient was then reversed from general anesthesia and taken to the PACU in good and stable condition. Again, modifier 22 is being requested given the densely adherent fibrotic rind encasing the renal pelvis and the ureter necessitating procedure time of well over 100% longer for typical operating time for this procedure. At the end of the case, all instrument, sponge and needle counts were correct. MTDD
[2017-01-06] MEDS: oxyCODONE-Acetamin 5-325 mg Tablet PO PRN ×8 (03:20→23:47)
[2017-01-06 05:34] LABS: Mean Corpuscular Hemoglobin 28.8 pg (27.0-35.0); Mean Corpuscular Volume 85.9 fL (81-100)
--- NOTE | 2017-01-06 06:28 | NUR ---
First night POSTOP L laproscopic radical nephrectomy ureterectomy with cystoscopy. Hearing aid in one ear and other in container at bedside. Khoury is patent and draining roxann urine with small blood clots, no irrigation this shift. MARVIN drain intact and draining sanguinous fluid, midline incision dressed and showing minimal drainage, 3 lap sites intact. Pt on air mattress, repositioned for comfort. AOx3. Given one dose dilauded IV and one dose PO percocet for pain. R wrist IV saline lock, L wrist IV infusing D5 1/2 NS with 20kCl. 2L o2 via NC. Met and spoke to before she left. Not presenting symptoms of progressive neurodisorder- spinal cerebraltaxia at this time. Care continues
--- NOTE | 2017-01-06 14:18 | NUR ---
Data: EMR reviewed. Pt is a 81 y/o male who was admitted for urothelial carcinoma of the left kidney per H&P. Pt's insurance is Medicare and [employer]. PCP is Sergey Abbott MD. 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 Pt has no history of HH or SNF services. SW met with Pt and explained role. Pt resides at home with his where he remains independent. Pt occasionally drives and does not use any DME. SW discussed DPOA/ advanced directive, SW confirmed with pt that this has been completed. Pt stated that advanced directive has been given to hospital. Pt's to provide transport home at time of discharge. SW provided phone number and plan on white board in room. No anticipated discharge needs. SW will continue to follow if needs arise. Assessment:Pt who is independent at baseline. Plan:Pt to discharge home when medically stable via POV. No anticipated discharge needs. SW will continue to follow if needs arise. MIKE Dick
--- NOTE | 2017-01-06 15:08 | PCM.PNSURG ---
Subjective Date of Service: Jan 06, 2017 Date of Service: Jan 06, 2017 Visit Information: Reason for Visit Urothelial Carcinoma Of Left Kidney Surgery/Surgery Date 01/05/17 Post-Op Day # 1 Date of Admission: Jan 05, 2017 at 16:34 Hospital Day #2 Subjective: Pt denies any pain at time of visit. He is tolerating PO diet, denies any n/v. he does report hiccups all night, does not have any at time of visit. He ambulated from bed--> chair with assistance. He has not yet performed IS. Postop General: No Shortness of Breath, No Chest Pain Gastrointestinal: Tolerating Oral Feedings, No N/V Objective Vital Sign- Last 8 Hours Date Time Temp Pulse Resp B/P Pulse Ox O2 Delivery O2 Flow Rate FiO2 01/06/17 13:45 36.8 86 18 169/86 90 Room Air 01/06/17 09:51 37.3 95 140/80 91 Room Air Intake and Output- Last 8 Hour 01/06/17 Cumulative From/Thru 07:00 01/01/17 14:08 - 01/06/17 06:52 Intake Total 275 ml 4828 ml Output Total 775 ml 1675 ml Balance -500 ml 3153 ml Intake Oral 275 ml 275 ml IV Total 4553 ml Output Urine Total 750 ml 1250 ml Drainage Total 25 ml 25 ml Estimated Blood Loss 400 ml General: Alert, Oriented X3, No Acute Distress Neck: Supple Lungs: Normal Air Movement Abdomen: Soft, Appropriately tender (surgical incisions are c/d/i) Extremities: Distal Pulses Palpable Neuro: Grossly Neurologically Intact Catheters: Urethral 2 Way Bazan Result Diagram: 01/06/17 0510 01/06/17 0510 Assessment & Plan Impression POD #1 Transurethral excision of the LEFT ureteral orifice, LEFT laparoscopic radical nephroureterectomy, open excision of LEFT bladder cuff Problems: Plan We discussed the importance of ambulation and incentive spirometry CBC and BMP stable at this time. Catheter draining well- will possibly remove bazan tomorrow Continue fluids- D5 1/2 NS with K+ Discussed that hiccups likely related to anesthesia and should resolve over the next 24-48 hours. Pt requested a different PO pain medication- will discuss with Dr. Horton and defer to her. Tomorrow CBC/BMP Ellen Orozco PA-C Jan 06, 2017 15:08
--- NOTE | 2017-01-06 18:10 | NUR ---
Activity POD #1, pt up to chair x2 and ambulating in [place] with staff x3. Tolerating well. 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 Needs reminders to keep walker underneath him and not too far out front. Gait belt used for safety. Pt encouraged by how well he is moving today.
[2017-01-07 03:27] VITALS: BP 160/79; PULSE 82; RESP 18; O2SAT 92
[2017-01-07] MEDS: oxyCODONE-Acetamin 5-325 mg Tablet PO PRN ×5 (04:16→23:12)
--- NOTE | 2017-01-07 07:29 | NUR ---
MARVIN drain/Pain Pt rated pain 5/10 and 8/10. He was taking 1 percocet at a time and finally agreed to take 2 tablets to help control pain longer. 2 tablets is effective. MARVIN drain to Left lower abdomen/pubic region, draining serous fluid, dressing CDI with bio-occlusive. Pt did not get out of bed for the night but did c/o gas this a.m. Advised he needs to get up and move around this a.m.
[2017-01-07] MEDS: D5 0.45% NaCl + KCl 20 mEq/L 1,000 ML IV SCH ×2 (08:30→16:08)
[2017-01-07 08:48] VITALS: BP 195/97; PULSE 85; RESP 18; O2SAT 94
[2017-01-07 09:04] VITALS: BP 186/97; PULSE 83
[2017-01-07 10:40] VITALS: BP_SYST 112; BP_SYST 127; BP_DIAS 69; BP_DIAS 73; PULSE 76
--- NOTE | 2017-01-07 10:47 | NUR ---
Social Work-readiness for discharge: Data:EMR Reviewed. Pt is on day 2 of hospitalization for urothelial per H&P. Pt is not medically stable anticipate later today or tomorrow. Per RN notes, pt has been up ambulating in the hallways independent. Pt declines any SW needs. No discharge needs identified. SW will continue to follow. Assessment:Pt who is independent at baseline. Plan:Pt to discharge home when medically stable via POV. No discharge needs identified. SW will continue to follow. MIKE Mckeon
--- NOTE | 2017-01-07 11:24 | NUR ---
LILLY signed. MIKE Mckeon
--- NOTE | 2017-01-07 11:25 | NUR ---
BP Hypertensive (195/97) this am. Pt did state that he was having "gas" pain. Percocet given and ambulated in halls with pt. Rechecked VS later, pt had been sleeping. BP down significantly (112/73). Pt asymptomatic, denies dizziness, nausea. Skin pink warm and dry. States "It goes up and down." Continue to monitor.
--- NOTE | 2017-01-07 11:52 | PCM.PNSURG ---
Subjective Date of Service: Jan 07, 2017 Date of Service: Jan 07, 2017 Visit Information: Reason for Visit Urothelial Carcinoma Of Left Kidney Surgery/Surgery Date cystoscopy 01/05/17 Post-Op Day # 2 Date of Admission: Jan 05, 2017 at 16:34 Hospital Day # 3 Subjective: Dr Hall states he is doing well overall. He is tolerating regular diet w/o n/v. He has had flatus. He denies n/v. His pain is well controlled. He is ambulatory. He has been using his IS. Postop General: No Complaints Gastrointestinal: Good Appetite, No N/V, Passing Flatus Pain Management: PO, IV Push Objective Vital Sign- Last 8 Hours Date Time Temp Pulse Resp B/P Pulse Ox O2 Delivery O2 Flow Rate FiO2 01/07/17 10:40 76 112/73 127/69 01/07/17 09:04 83 186/97 01/07/17 08:48 36.9 85 18 195/97 94 Nasal Cannula 2.00 01/07/17 07:30 Supplement Oxygen Intake and Output- Last 8 Hour 01/07/17 Cumulative From/Thru 07:00 01/01/17 14:08 - 01/07/17 05:20 Intake Total 200 ml 8610 ml Output Total 1610 ml 5325 ml Balance -1410 ml 3285 ml Intake Oral 200 ml 1395 ml IV Total 7215 ml Output Urine Total 1600 ml 4850 ml Drainage Total 10 ml 75 ml Estimated Blood Loss 400 ml # Bowel Movements 0 0 General: Alert Abdomen: Benign, Soft Extremities: Warm Catheters: Urethral 2 Way Khoury (clear urine) Result Diagram: 01/06/17 0510 01/07/17 0550 Assessment & Plan Impression POD#2 LEFT lap radical nephroureterectomy, open excision of bladder cuff, cysto w excision of LEFT UO Problems: Plan We discussed his labs - Renal insufficiency, expected We discussed DC planning - His states they would feel more comfortable w DC tomorrow, which I think is reasonable considering the procedure and recovery at this point AM Fatemeh Cameron MD Jan 07, 2017 11:52
[2017-01-07 12:07] VITALS: BP 158/84; PULSE 78; RESP 18; O2SAT 93
--- NOTE | 2017-01-07 19:45 | PATH ---
SURGICAL PATHOLOGY Attending Physician:Fatemeh Horton, CASE STATUS: Signed Out PATIENT NAME: ROBERT LOZADA PID: [id number] : 1935 DATE COLLECTED:01/05/2017 00:00 SPECIMEN: Kidney, Partial Resection CLINICAL HISTORY: 1). LEFT KIDNEY & URETER FINAL DIAGNOSIS: Per a phone conversation with Lida at [facility] OR, this case is to be forwarded to [facility] Pathology according to the instructions she received from Dr. Horton. ICD-9 CODES: CPT CODES: 1: 00551 Electronically Signed Out Fatemeh Araiza MD [facility] Pathology [facility] [address], [place] [address] Technical component performed at [facility], [facility] [address], [place], [address]
[2017-01-07 20:25] VITALS: BP 132/76; PULSE 74; RESP 18; O2SAT 95
[2017-01-08] MEDS: D5 0.45% NaCl + KCl 20 mEq/L 1,000 ML IV SCH ×2 (00:08→08:29)
--- NOTE | 2017-01-08 04:47 | NUR ---
activity pt had an uneventful night. pain is well controlled with (2) percocet 5-325. bazan cath patent and draining clear yellow urine. MARVIN drain has sero-sang output. pt resting comfortably in bed this shift.
[2017-01-08] MEDS: oxyCODONE-Acetamin 5-325 mg Tablet PO PRN ×2 (05:37→11:53)
[2017-01-08 06:36] VITALS: BP 139/74; PULSE 71; RESP 18; O2SAT 96
--- NOTE | 2017-01-08 09:17 | PCM.PNSURG ---
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 His pain is well controlled on Percocet. He is ambulatory. He tolerates regular diet. Postop General: No Complaints Gastrointestinal: Good Appetite, No N/V Pain Management: PO Postop Activity: Ambulating Independently Objective Vital Sign- Last 8 Hours Date Time Temp Pulse Resp B/P Pulse Ox O2 Delivery O2 Flow Rate FiO2 01/08/17 06:36 36.4 71 18 139/74 96 Room Air Intake and Output- Last 8 Hour 01/08/17 Cumulative From/Thru 07:00 01/01/17 14:08 - 01/08/17 06:32 Intake Total 2050 ml 64619 ml Output Total 1810 ml 8165 ml Balance 240 ml 6358 ml Intake Oral 600 ml 2795 ml IV Total 1450 ml 02286 ml Output Urine Total 1800 ml 7650 ml Drainage Total 10 ml 115 ml Estimated Blood Loss 400 ml # Bowel Movements 0 0 General: Alert Abdomen: Benign, Soft, Other (wounds c/d/i) Extremities: Warm Neuro: Cranial Nerves 2-12 nl Catheters: Urethral 2 Way Khoury Result Diagram: 01/06/17 0510 01/08/17 0522 Assessment & Plan Impression POD#3 Problems: Plan We reviewed his Cr - Improving We discussed DC planning today MARVIN has been ordered to be removed today Fatemeh Horton MD Jan 08, 2017 09:16
--- NOTE | 2017-01-08 09:19 | PCM.DISURG ---
Surgical Discharge Instruction Date of Service Jan 08, 2017 Dates of Hospitalization Date of Hospital Admission Jan 05, 2017 at 16:34 Providers Admitting Physician: Fatemeh Horton MD Primary Care Physician: Sergey Abbott DO Attending Physician: Fatemeh Horton MD Discharge Diagnosis Discharge Diagnosis LEFT upper tract urothelial carcinoma Post Operative diagnosis Same Diet Discharge Diet: No restrictions Activity Discharge Activity-General: Balance rest and activity, No lifting >10 pounds for 4-6 weeks, No driving while taking narcotic Dressing and Incisional Care Dressing Care: Allow Steri Stripes to fall off Hygiene: May shower, NO bathtub, hot tub or whirlpool Follow Up Plan Follow Up Plan 01/19/17 cystogram Call your provider for: Fever, Chills, Shortness of breath, Increasing abdominal pain, Vomiting, Discharge @ incision, pus discharge Fatemeh Horton MD Jan 08, 2017 09:19
--- NOTE | 2017-01-08 09:44 | PCM.DC.SUR ---
Discharge Summary Date of Service: Jan 08, 2017 Date of Hospital Admission: Jan 05, 2017 at 16:34 Date of Operation(s): 01/05/17 Date of Discharge: 01/08/17 Diagnosis at Time of Discharge LEFT upper tract urothelial carcinoma Problems: Operation Cysto, TUR LEFT UO LEFT lap radical nephroureterectomy LEFT open excision of bladder cuff Brief History and Physical: 81 with LEFT upper tract UCC. Consultants: Underwent surgery 01/05/17 and essentially had uneventful recovery. By the time of DC, he was ambulatory, had good pain control on Percocet, and tolerating regular diet. Pathology: Pending Disposition: Home Follow-up Plan: RTC 1 wks from DOS with cystogram ([Sleep Aid]) 1 TABLET PO PRN (Reported) Aspirin (Aspirin) 81 Mg Tablet 81 MG PO DAILY (Reported) Hydrocodone-Acetaminophen 5-325 mg (Hydrocodone-Acetaminophen 5-325 mg) 1 Each Tablet 1 TABLET PO Q4H PRN PRN For Pain (Reported) Lorazepam (Lorazepam) 1 Mg Tablet 1 MG PO TID PRN PRN For Anxiety (Reported) Multivitamin (Multi Vitamin Daily) 1 Each Tablet 1 EACH PO DAILY (Reported) Sildenafil Citrate (Viagra) 100 Mg Tablet 100 MG PO UD PRN PRN erectile dysfunction (Reported) Tamsulosin (Flomax) 0.4 Mg Capsule 0.4 MG PO DAILY (Reported) Temazepam (Temazepam) 15 Mg Capsule 15 MG PO HS PRN PRN For Insomnia (Reported) Fatemeh Horton MD Jan 08, 2017 09:44
--- NOTE | 2017-01-08 11:19 | NUR ---
Social Work-Discharge Data:EMR Reviewed. Pt is on day 3 of hospitalization for urothelial per H&P. Pt to discharge today. Per RN notes, pt has been up ambulating in the hallways independent. Pt declines any SW needs. No discharge needs identified. Pt to discharge home with to transport via POV. Assessment:Pt who is independent at baseline. Plan: Pt to discharge home when medically stable via POV. No discharge needs identified. MIKE Mckeon
--- NOTE | 2017-01-08 14:09 | NUR ---
Discharge Pt discharged at 1350 in w/c to private vehicle with . MARVIN drain removed and all incisions uncovered and well approximated. Khoury teaching done with pt and his and leg bag is attached. Pt A&O x 3, HESS, VSS, pain 2/10 and medications given prior to discharge. Pt has care notes and discharge instructions, rx's given to earlier to take to pharmacy. All questions answered and pt has all belongings. IV removed intact. Pt has f/u appt with MD and cystogram scheduled and they are written down in discharge instructions.
== END 2017-01-08 13:55 | disposition home or self-care (01) | DRG 658 ==
LOC: SAS 05:46 → OSC 16:34
PROVIDERS: ADMIT Urology; ATTEND Urology
PROC: 0TT10ZZ Resection of Left Kidney, Open Approach (ICD-10-PCS; principal; 2017-01-05 07:30)
PROC: 0TT70ZZ Resection of Left Ureter, Open Approach (ICD-10-PCS; 2017-01-05 07:30)
DX: C64.2 Malignant neoplasm of left kidney, except renal pelvis (principal)